=== PATIENT | female | born 1975 | race Caucasian/White ===

== ENCOUNTER 2020-06-24 08:00 | Outpatient (REF) | payer BC, SELFPAY ==
[2020-06-26 20:57] LABS: HPV mRNA E6/E7 rflx Not Detected (Not Detected)
== END 2020-06-24 08:01 | disposition home or self-care (01) ==
LOC: HO.LAB 08:00
PROVIDERS: PCP Family Medicine; Visit Provider Advanced Practice Midwife
DX: Z01.419 Encounter for gynecological examination (general) (routine) without abnormal findings (principal); E03.9 Hypothyroidism, unspecified; R23.2 Flushing; R61 Generalized hyperhidrosis; Z86.16 Personal history of COVID-19
CPT/HCPCS: 36415; 87624; 88142

== ENCOUNTER → 2021-06-30 08:00 | Outpatient (BNVA) | payer BC, SELFPAY | PROVIDERS: PCP Family Medicine; Visit Provider Advanced Practice Midwife | DX: Z13.89 Encounter for screening for other disorder (principal) ==

== ENCOUNTER 2021-07-12 08:28 | Outpatient (REF) | payer BC, SELFPAY ==
--- NOTE | ~2021-07-12 | MM_ITS ---
EXAMINATION: MM SCREENING DIGITAL BREAST TOMOSYNTHESIS, BILATERAL CLINICAL INFORMATION: Screening. Asymptomatic. The lifetime risk of breast cancer based on the Tyrer-Cuzick Model is 9%. COMPARISON: Mammography: 10/03/2019, 09/27/2018, 09/10/2017 TECHNIQUE: Digital breast tomosynthesis is performed in both the craniocaudal and mediolateral oblique views along with computer-aided detection (CAD). Synthesized 2D images are generated from the tomosynthesis. FINDINGS: There are scattered areas of fibroglandular density (ACR BI-RADS breast composition Category b). There is a fibronodular parenchymal pattern is similar to prior exams. Breast tissue composition borders on heterogeneously dense there is no significant mass or interval developing density or architectural abnormality. Numerous similar appearing punctate round calcifications are again seen in both breasts likely overall randomly mildly increased since 2018. Skin contours are smooth. No significant changes. MM/MM tomosynthesis screening BI IMPRESSION: No mammographic evidence of malignancy. ASSESSMENT: BI-RADS 2: Benign RECOMMENDATION: Routine annual mammography screening. This patient's information was entered into a reminder system with a target due date for their next mammogram.
== END 2021-07-12 08:29 | disposition home or self-care (01) ==
LOC: HO.MAMMO 08:28
PROVIDERS: PCP Family Medicine; Visit Provider Family Medicine
DX: Z12.31 Encounter for screening mammogram for malignant neoplasm of breast (principal)
CPT/HCPCS: 77063; 77067

== ENCOUNTER → 2022-01-09 15:16 | Outpatient (BNVA) | payer BC, SELFPAY | PROVIDERS: PCP Family Medicine; Visit Provider Advanced Practice Midwife | DX: T83.32XA Displacement of intrauterine contraceptive device, initial encounter (principal); Z30.433 Encounter for removal and reinsertion of intrauterine contraceptive device | CPT/HCPCS: 58301 ==

== ENCOUNTER 2022-01-26 12:45 | Outpatient (REF) | payer BC, SELFPAY ==
--- NOTE | ~2022-01-26 | US_ITS ---
EXAMINATION: US PELVIS CLINICAL INFORMATION: Check IUD placement. COMPARISON: None TECHNIQUE: Ultrasound of the pelvis is performed using both transabdominal and transvaginal transducers along with Doppler. Transvaginal imaging is performed due to inadequate visualization transabdominally. FINDINGS: UTERUS: The uterus is anteverted, anteflexed and measures 6.56 cm in length, 3.22 cm in AP and 4.0 cm in transverse dimension. There is an IUD within the endometrial canal limiting evaluation of endometrial thickness. The uterus is smooth in contour and has normal myometrial echogenicity. No visible fibroid. ADNEXA: Both ovaries are visualized. There is normal color flow to the adnexa. There is no ovarian torsion. There is no pelvic ascites or fluid collection. Right ovary measures 1.9 x 1.5 x 1.9 cm and volume 2.8 mL. There is an anechoic cyst measuring 1.0 x 0.70 x 1.0 cm. Left ovary measures 2.5 x 1.9 x 1.0 cm and volume 2.2 mL. There is an anechoic cyst measuring 0.50 x 0.50 x 0.35 cm. There is a corpus luteal cyst measuring 0.60 x 0.63 x 0.63 cm. There is no free fluid in the cul-de-sac. US/US pelvic and transvaginal IMPRESSION: IUD is in correct position within the endometrial canal. There is a corpus luteal cyst left ovary and a simple cyst in right ovary. There is no free fluid in the cul-de-sac.
== END 2022-01-26 12:46 | disposition home or self-care (01) ==
LOC: HO.HMGCX 12:45
PROVIDERS: Visit Provider Advanced Practice Midwife
DX: T83.32XA Displacement of intrauterine contraceptive device, initial encounter (principal)
CPT/HCPCS: 76830; 76856

== ENCOUNTER → 2022-04-30 14:57 | Outpatient (BNVA) | payer BC, SELFPAY | PROVIDERS: PCP Family Medicine; Visit Provider Obstetrics & Gynecology | DX: Z30.433 Encounter for removal and reinsertion of intrauterine contraceptive device (principal) | CPT/HCPCS: 58300; 58301; J7298 ==

== ENCOUNTER 2022-07-18 09:40 | Outpatient (REF) | payer BC, SELFPAY ==
--- NOTE | ~2022-07-18 | MM_ITS ---
EXAMINATION: MM SCREENING DIGITAL BREAST TOMOSYNTHESIS, BILATERAL CLINICAL INFORMATION: Screening. Asymptomatic. Benign left biopsy 2016 (fibroadenoma). The lifetime risk of breast cancer based on the Tyrer-Cuzick Model is 8%. COMPARISON: Mammography: 07/12/2021, 10/03/2019, 09/27/2018 TECHNIQUE: Digital breast tomosynthesis is performed in both the craniocaudal and mediolateral oblique views along with computer-aided detection (CAD). Synthesized 2D images are generated from the tomosynthesis. FINDINGS: There are scattered areas of fibroglandular density (ACR BI-RADS breast composition Category b). Breast tissue composition borders on heterogeneously dense. Parenchymal pattern is similar to prior exams and there is no developing density or interval significant mass or architectural abnormality. There is a biopsy clip marker overlying a biopsy proven fibroadenoma again seen posterior upper left breast. Again, there are scattered bilateral punctate calcifications. The axilla and skin contours are unremarkable. MM/MM tomosynthesis screening BI IMPRESSION: No significant changes from prior exams. ASSESSMENT: BI-RADS 2: Benign RECOMMENDATION: Routine annual mammography screening. This patient's information was entered into a reminder system with a target due date for their next mammogram.
== END 2022-07-18 09:41 | disposition home or self-care (01) ==
LOC: HO.MAMMO 09:40
PROVIDERS: PCP Family Medicine; Visit Provider Family Medicine
DX: Z12.31 Encounter for screening mammogram for malignant neoplasm of breast (principal)
CPT/HCPCS: 77063; 77067

== ENCOUNTER → 2022-07-23 08:02 | Outpatient (BNVA) | payer BC, SELFPAY | PROVIDERS: PCP Family Medicine; Visit Provider Obstetrics & Gynecology | DX: Z01.419 Encounter for gynecological examination (general) (routine) without abnormal findings (principal); T83.32XA Displacement of intrauterine contraceptive device, initial encounter; Z32.02 Encounter for pregnancy test, result negative | CPT/HCPCS: 81025 ==

== ENCOUNTER 2022-08-04 15:26 | Outpatient (REF) | payer BC, SELFPAY ==
--- NOTE | ~2022-08-04 | US_ITS ---
EXAMINATION: US PELVIS CLINICAL INFORMATION: Check IUD placement COMPARISON: Previous exam most recent January 2022 TECHNIQUE: Ultrasound of the pelvis is performed using both transabdominal and transvaginal transducers along with Doppler. Transvaginal imaging is performed due to inadequate visualization transabdominally. FINDINGS: The uterus is anteverted and measures 9.3 x 3.5 x 5.1 cm in dimension. There is an IUD in satisfactory position. The endometrium does not appear thickened. No focal uterine lesion. The ovaries are normal. The right ovary measures 2.7 x 1.8 x 2.2 cm. The left ovary measures 3.6 x 2.9 x 1.9 cm. There is no fluid in the pelvis. US/US pelvic and transvaginal IMPRESSION: IUD in the uterus in satisfactory position.
== END 2022-08-04 15:27 | disposition home or self-care (01) ==
LOC: HO.HMGCX 15:26
PROVIDERS: PCP Family Medicine; Visit Provider Obstetrics & Gynecology
DX: T83.32XA Displacement of intrauterine contraceptive device, initial encounter (principal)
CPT/HCPCS: 76830; 76856

== ENCOUNTER → 2022-08-27 08:10 | Outpatient (BNVA) | payer BC, SELFPAY | PROVIDERS: PCP Family Medicine; Visit Provider Obstetrics & Gynecology ==

== ENCOUNTER 2022-10-27 08:01 | Outpatient (REF) | payer BC, SELFPAY ==
[2022-10-28 16:20] LABS: H Pylori Breath Test Negative (Negative)
== END 2022-10-27 08:02 | disposition home or self-care (01) ==
LOC: HO.LNP 08:01
PROVIDERS: PCP Family Medicine; Visit Provider Nurse Practitioner
DX: Z01.818 Encounter for other preprocedural examination (principal); R11.0 Nausea; R13.10 Dysphagia, unspecified; R63.4 Abnormal weight loss; Z11.0 Encounter for screening for intestinal infectious diseases; Z80.0 Family history of malignant neoplasm of digestive organs
CPT/HCPCS: 83013

== ENCOUNTER 2022-10-27 08:01 | Outpatient (AMB) | payer BC, SELFPAY ==
--- NOTE | 2022-10-27 08:03 | A.OFFVIS_ITS ---
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 Accompanied by: Self / Same As Patient Allergies carrot [CARROT] Allergy (Severe, Verified 10/27/22 08:08) ANAPHYLAXIS ciprofloxacin [From Cipro] Allergy (Severe, Verified 10/27/22 08:08) Anaphylaxis amoxicillin [From Augmentin] Allergy (Intermediate, Verified 10/27/22 08:08) Rash clavulanic acid [From Augmentin] Allergy (Intermediate, Verified 10/27/22 08:08) Rash clindamycin Allergy (Intermediate, Verified 10/27/22 08:08) Hives doxycycline Allergy (Intermediate, Verified 10/27/22 08:08) Hives levofloxacin [From Levaquin] Allergy (Intermediate, Verified 10/27/22 08:08) Difficulty Breathing shellfish derived Allergy (Intermediate, Verified 10/27/22 08:08) upset stomach Environmental Allergy (Unknown, Uncoded 10/27/22 08:08) Unknown flagyl Allergy (Unknown, Uncoded 10/27/22 08:08) Unknown HPI New Pt colo screening HPI Details 47-year-old female here for preprocedural meeting to discuss a screening colonoscopy. She is referred by Matthias Ramos the . [facility] in [facility]. PMX Asthma Allergic rhinitis Hypothyroid Depression with anxiety Insomnia Polyarthralgia Fatigue Low back pain with sciatica Chronic sinusitis * SURGICAL HISTORY Total thyroidectomy Lumbar laminectomy L-5 Sinus roto rooter Arthroscopic knee surgery for menesuc tear Tonsillectomy and adeniodectomy C section x 2 * ALLERGIES Augmentin Flagyl Levaquin Nuts Clindamycin Doxycycline Shellfish * [employer]: No recent in our system TODAY'S VISIT This is her first colonoscopy. She suffers CIC and uses Miralax for this with good control. She has been suffering constant nausea and has lost 30 lbs r/t this, this is worse with eating over the last couple of months. She has dysphagia of solid foods mid sternally and a lot of GERD. She is taking TUMS and OTC omeprazole. She has had a lot of antibiotic treatments r/t her ongoing sinusitis and prednisone treatment. Her father had stomach cancer. No vaginal yeast infections, no mouth soreness etc. We discuss using pepcid for prn use. There are no prior problems with anesthesia or sedation. She is struggling with her asthma r/t the sinusitis over this year since she had COVID. She has a hx of bradycardia and tends towards low BP - testing came out okay. Apparently she has had trouble being allergic to thing since she developed COVID and this is a new health condition for her. No ID problems. Her father had colon polyps removed. I will order a colonoscopy and an EGD to help explore her nausea and I educate her that nausea is very vague symptom that can be caused by many body systems including GI but also it could be metabolic neurologic or even psychogenic. Since she is not on any acid reducing therapy we will get an H pylori breath test, basic CBC and metabolic panel, I urinalysis to see if she is spilling glucose to try to explain her abnormal weight loss as well as a barium swallow to thoroughly explore her dysphagia. She did well on Zofran but her insurance would only give her 12 pills a month. All try her on some metoclopramide 5 mg 4 times a day and consider if we need a gastric emptying study going forward depending on the results of other testing. Return office visit in 3 weeks to evaluate the Reglan and also course after the EGD colonoscopy. 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 Review of Systems Const Denies fatigue, Denies fever(s), Denies night sweats, Reports poor appetite and Reports weight loss (30 lbs) ENT Reports Normal hearing present, Denies dental pain, Reports dysphagia, Denies hearing loss, Denies mouth pain, Reports nasal congestion, Reports nasal discharge, Denies odynophagia, Reports sinus pressure, Denies throat swelling, Denies tongue swelling and Reports other (Dentition adequate) Card Reports no additional complaints Resp Reports cough and Reports wheezing GI Denies abdominal pain, Denies melena, Denies bloating, Denies hematochezia, Denies constipation, Denies GI cramping, Reports dysphagia, Denies excessive flatus, Denies early satiety, Reports heartburn, Denies diarrhea, Reports nausea, Denies odynophagia, Denies vomiting and Denies hematemesis Skin/Breast Denies pruritus, Denies lesions, Reports rash (Hive rash is not consistent with Cassidy) and Denies jaundice Neuro Reports Normal hearing present, Denies Abnormal speech present and Reports Sensory deficit (Neuro) (Loss of taste and smell) Endo Denies fatigue Aller/Immun Reports urticaria, Denies throat swelling, Denies tongue swelling and Reports wheezing Physical Exam Vital Signs: Last Vital Signs Pulse 93 10/27/22 08:09 BP 91/54 L 10/27/22 08:09 BMI result Body Mass Index 25.5 Const General: cooperative, no acute distress, well developed and well groomed Nutritional Appearance: average body habitus and well nourished Orientation/consciousness: oriented to person, oriented to place and oriented to time Limitations: No language barrier HEENT Head: Yes normocephalic and Yes atraumatic Eyes General: appearance normal, both eyes and all related structures Pupils: Equal, round and reactive pupils present Neck Neck: Yes normal visual inspection and Yes no lymphadenopathy Thyroid: Thyroid normal Resp Effort & Inspection: normal respiratory effort and able to speak in complete sentences Auscultation: clear to auscultation bilaterally Cardio Rate: regular rate Rhythm: regular rhythm Heart sounds: Normal, physiologic split S2 sound present Peripheral pulses: radial pulses present and posterior tibial pulses present GI Inspection: No distended and No Abdominal panniculus present Palpation (GI): Soft to palpation, nontender, no guarding, not rigid and No hepatosplenomegaly present Percussion: Yes normal to percussion Auscultation: normal bowel sounds Rectal Exam - Female: deferred Skin General skin exam: no rashes or lesions noted, turgor normal, skin not dry, no jaundice, No spider nevi and no striae Rashes: no rashes Nails: normal Neuro General: oriented to person, oriented to place and oriented to time Cranial nerves: Yes Equal, round and reactive pupils present and Yes Normal hearing present Speech: No Abnormal speech present Sensory Exam: Sensory deficit (Neuro) (Loss of taste and smell) Extrem General: Yes normal to inspection, No clubbing, No cyanosis and No edema Psych Appearance: grossly normal and well kempt Mental Status: mental status grossly normal Speech and movement: Normal speech and movement present Affect: normal affect Attitude: cooperative Thought process: Normal thought process present and not confabulating Thought content: Normal thought content present Insight: Fair insight present (Psych) Judgement: Fair judgement present (Psych) Assessment & Plan Assessment & Plan (1) Pre-op examination: Code(s): Z01.818 - Encounter for other preprocedural examination Plan: This is her first colonoscopy. She suffers CIC and uses Miralax for this with good control. She has been suffering constant nausea and has lost 30 lbs r/t this, this is worse with eating over the last couple of months. She has dysphagia of solid foods mid sternally and a lot of GERD. She is taking TUMS and OTC omeprazole. She has had a lot of antibiotic treatments r/t her ongoing sinusitis and prednisone treatment. Her father had stomach cancer. No vaginal yeast infections, no mouth soreness etc. We discuss using pepcid for prn use. There are no prior problems with anesthesia or sedation. She is struggling with her asthma r/t the sinusitis over this year since she had COVID. She has a hx of bradycardia and tends towards low BP - testing came out okay. Apparently she has had trouble being allergic to thing since she developed COVID and this is a new health condition for her. No ID problems. Her father had colon polyps removed. I will order a colonoscopy and an EGD to help explore her nausea and I educate her that nausea is very vague symptom that can be caused by many body systems including GI but also it could be metabolic neurologic or even psychogenic. Since she is not on any acid reducing therapy we will get an H pylori breath test, basic CBC and metabolic panel, I urinalysis to see if she is spilling glucose to try to explain her abnormal weight loss as well as a barium swallow to thoroughly explore her dysphagia. She did well on Zofran but her insurance would only give her 12 pills a month. All try her on some metoclopramide 5 mg 4 times a day and consider if we need a gastric emptying study going forward depending on the results of other testing. Return office visit in 3 weeks to evaluate the Reglan and also course after the EGD colonoscopy. (2) Family history of colon cancer: Code(s): Z80.0 - Family history of malignant neoplasm of digestive organs (3) Nausea: Code(s): R11.0 - Nausea (4) Dysphagia: Code(s): R13.10 - Dysphagia, unspecified (5) Abnormal weight loss: Code(s): R63.4 - Abnormal weight loss Orders: Orders Comprehensive Met. Panel Today Z01.818 - Encounter for other preprocedural examination, Z80.0 - Family history of malignant neoplasm of digestive organs Complete Blood Count Auto Diff Today Z01.818 - Encounter for other preprocedural examination, Z80.0 - Family history of malignant neoplasm of digestive organs [place] barium swallow Today R11.0 - Nausea, R13.10 - Dysphagia, unspecified EGD/[place] Combo - GI Use Only Today R11.0 - Nausea, R13.10 - Dysphagia, unspecified UA CC w/rflx Micro + Cult Today R63.4 - Abnormal weight loss H Pylori Breath Test Today Medications: New peg 3350-electrolytes 236-22.74-6.74 -5.86 gram (Golytely) until fecal effluent is clear; do not exceed a total volume of 2,000 mL 240 mL PO Q10M 1 day 4,000 mL 0RF Z12.11 - Encounter for screening for malignant neoplasm of colon metoclopramide HCl (Reglan) provider aware of possible interaction with sertraline and is monitoring 5 mg PO .tidac 90 tabs 3RF Coding Level of Care Code New Pt Level 3 (17048) Diagnoses Pre-op examination Z01.818 Family history of colon cancer Z80.0 Nausea R11.0 Dysphagia R13.10 Abnormal weight loss R63.4
[2022-10-27 08:09] VITALS: BP 91/54; PULSE 93; BMI 25.5
== END 2022-10-27 08:46 | disposition home or self-care (01) ==
PROVIDERS: PCP Family Medicine; Visit Provider Nurse Practitioner
DX: Z01.818 Encounter for other preprocedural examination (principal); Z12.11 Encounter for screening for malignant neoplasm of colon; Z80.0 Family history of malignant neoplasm of digestive organs; K59.04 Chronic idiopathic constipation; R13.10 Dysphagia, unspecified; R11.0 Nausea; R63.4 Abnormal weight loss
CPT/HCPCS: S0285

== ENCOUNTER 2022-10-30 06:29 | Outpatient (REF) | payer BC, SELFPAY ==
[2022-10-30 06:39] LABS: MANUAL DIFF FLAG NO
[2022-10-30 08:45] LABS: Appearance Urine Clear; Color Urine Yellow; Glucose Urine UA Negative (Negative); Leukocyte Esterase Urine Negative (Negative); Nitrite Urine Negative (Negative); PH 5.5 (5.0-9.0); Specific Gravity - Urine 1.025 (1.005-1.025); Urine Blood Negative (Negative); Urine Ketones Trace mg/dL (Negative); Urine Protein Trace mg/dL (Neg-Trace)
[2022-10-30 08:48] LABS: Basophils Absolute Auto 0.1 X10*3/uL (0.0-0.2); Basophils Percent Auto 1.5 % (0-2); Eosinophils Absolute Auto 0.9 X10*3/uL (0.0-0.4); Eosinophils Percent Auto 13.9 % (0-4); Hematocrit 38.4 % (37.0-47.0); Hemoglobin 12.4 g/dl (12.0-16.0); Imm Gran Abs Auto 0.02 X10*3/uL (0.00-0.03); Imm Gran Pct Auto 0.3 % (0.0-0.4); Lymphocytes Absolute Auto 2.2 X10*3/uL (1.2-4.9); Lymphocytes Percent Auto 34.1 % (20-40); Mean Corpuscular HGB Conc 32.3 g/dl (31.0-35.0); Mean Corpuscular Hemoglobin 31.2 pg (27.0-33.0); Mean Corpuscular Volume 96.5 fL (80.0-98.0); Mean Platelet Volume 11.5 fL (9.4-12.3); Monocytes Absolute Auto 0.5 X10*3/uL (0.1-1.2); Monocytes Percent Auto 7.6 % (2-11); Neutrophils Absolute Auto 2.8 x10*3/uL (2.0-8.3); Neutrophils Percent Auto 42.6 % (45-73); Platelet Count 247 X10*3/uL (160-400); Red Blood Count 3.98 X10*6/uL (4.20-5.50); Red Cell Distribution Width 12.7 % (11.0-16.0); White Blood Count 6.5 X10*3/uL (4.8-10.8)
[2022-10-30 09:34] LABS: Alanine Aminotransferase 11 U/L (0-31); Albumin Level 3.6 g/dL (3.5-5.0); Alkaline Phosphatase 68 U/L (39-117); Anion Gap 11 (12-20); Aspartate Amino Transferase 12 U/L (5-31); Bilirubin Total 0.4 mg/dL (0.0-1.0); Blood Urea Nitrogen 12 mg/dL (9-16); Calcium 9.3 mg/dL (8.4-10.2); Carbon Dioxide 24 mmol/L (22-29); Chloride 109 mmol/L (96-108); Estimated Glomerular Filt Rate > 60; Glucose Random 107 mg/dL (60-115); Potassium 3.3 mmol/L (3.3-5.1); Sodium 141 mmol/L (135-145); Total Protein 6.6 g/dL (6.5-8.0)
== END 2022-10-30 06:30 | disposition home or self-care (01) ==
LOC: HO.LAB 06:29
PROVIDERS: PCP Family Medicine; Visit Provider Nurse Practitioner
DX: Z01.818 Encounter for other preprocedural examination (principal); R63.4 Abnormal weight loss; Z80.0 Family history of malignant neoplasm of digestive organs
CPT/HCPCS: 36415; 80053; 81003; 85025

== ENCOUNTER → 2023-05-13 10:28 | Day surgery (SDC) | payer BC, SELFPAY ==
[2023-05-13 10:42] VITALS: BP 152/85; PULSE 120; RESP 26; TEMP 36.1; O2SAT 94
--- NOTE | 2023-05-13 10:43 | MHC.SHP ---
Pre-Procedural Eval Section A - 24 Hr Update-Section A only Date of Service: 05/13/23 Section B - Complete if H&P > 30 days Chief Complaint: hx malignant neoplasm,nausea,dysphagia, Relevant Family History (Specify if Yes): No Relevant Social History: None Present Medications: see Short Stay Collaborative assessment Medical History: Significant History History of Previous Operations: Relevant previous surgery/procedure and date(s) Allergies: Allergies Allergy/AdvReac Type Severity Reaction Status Date / Time carrot [CARROT] Allergy Severe ANAPHYLAXIS Verified 10/27/22 08:08 ciprofloxacin [From Cipro] Allergy Severe Anaphylaxis Verified 10/27/22 08:08 amoxicillin [From Augmentin] Allergy Intermediate Rash Verified 10/27/22 08:08 clavulanic acid Allergy Intermediate Rash Verified 10/27/22 08:08 [From Augmentin] clindamycin Allergy Intermediate Hives Verified 10/27/22 08:08 doxycycline Allergy Intermediate Hives Verified 10/27/22 08:08 levofloxacin [From Levaquin] Allergy Intermediate Difficulty Verified 10/27/22 08:08 Breathing shellfish derived Allergy Intermediate upset Verified 10/27/22 08:08 stomach Environmental Allergy Unknown Unknown Uncoded 10/27/22 08:08 flagyl Allergy Unknown Unknown Uncoded 10/27/22 08:08 Plan I have reviewed the history and physical and performed a pertinent physical examination on my patient. No changes have occurred unless specified. Time Spent With Patient Time: Total time managing care of this patient today ____ minutes.
[2023-05-13 10:56] LABS: UPreg QC Valid YES; Urine Pregnancy NEGATIVE (NEGATIVE)
--- NOTE | 2023-05-13 10:57 | PC.NURSE ---
Addendum entered by Margaux Whyte RN 05/13/23 11:19: CANCELLED SECOND TO ASTHMA NEWLY ON PREDNISONE Original Note: PT BEING RESCHEDULED BY SOWMYA AND DR BAILON [facility]
--- NOTE | 2023-05-13 10:59 | HO.ANESPROP2 ---
HPI - Anesthesia Eval Consult details Narrative: 47yo female patient for EGD/ Colonoscopy. Patient coughing uncontrollably. Face flushed. Voice raspy. Apparently just started on prednisolone yesterday for exacerbation of asthma. Sats 93% on room air. HR up to 120s. Used inhaler at home and also since she has been here. RR 26. Lung: Occasional wheeze. Denies recent cold/ fever but sniffly. Discussed with Dr Amato and patient. High risk for laryngeal/ bronchospasm. Will reschedule case to allow for optimization of status. Patient agrees with plan PMFSH Active Problems Active Problems: All Active Problems (Updated 10/27/22 @ 08:45 by VIKAS Mobley) Abnormal weight loss (Acute) Dysphagia (Acute) Nausea (Acute) Family history of colon cancer (Acute) Pre-op examination (Acute) Chronic sinusitis (Acute) Low back pain with sciatica (Acute) Fatigue (Acute) Polyarthralgia (Acute) Insomnia (Acute) Hypothyroid (Acute) IUD strings lost (Acute) Colon cancer screening (Acute) IUD check up (Acute) Well woman exam (Acute) Encounter for IUD removal and reinsertion (Acute) Contraceptive management (Acute) Past Medical History Medical History Asthma History of depression Family History Family History Father Stomach cancer Surgical History Surgical History History of lumbar laminectomy H/O total thyroidectomy H/O knee surgery Hx of tonsillectomy History of back surgery H/O thyroidectomy Hx of section Social History Social History Household Members: Spouse Housing: House Alcohol intake: current Alcohol intake frequency: a few times a week Patient Tobacco Use Status: Never used Tobacco Advance Directives: No Advance Directives Information Provided: Yes Recently lost weight without trying: No Nutrition Risks: No Nutritional Risk Current occupational status: employed 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 [employer] Meds Allergies Allergy/AdvReac Type Severity Reaction Status Date / Time carrot [CARROT] Allergy Severe ANAPHYLAXIS Verified 10/27/22 08:08 ciprofloxacin [From Cipro] Allergy Severe Anaphylaxis Verified 10/27/22 08:08 amoxicillin [From Augmentin] Allergy Intermediate Rash Verified 10/27/22 08:08 clavulanic acid Allergy Intermediate Rash Verified 10/27/22 08:08 [From Augmentin] clindamycin Allergy Intermediate Hives Verified 10/27/22 08:08 doxycycline Allergy Intermediate Hives Verified 10/27/22 08:08 levofloxacin [From Levaquin] Allergy Intermediate Difficulty Verified 10/27/22 08:08 Breathing shellfish derived Allergy Intermediate upset Verified 10/27/22 08:08 stomach Environmental Allergy Unknown Unknown Uncoded 10/27/22 08:08 flagyl Allergy Unknown Unknown Uncoded 10/27/22 08:08 Active Medications: Current Medications Lactated Ringer's (Lr) 1,000 mls @ 50 mls/hr IVCONT .Q20H [facility] Home Medications Medication Instructions Recorded Confirmed Last Taken Type levonorgestrel 21 mcg/24 hours (8 intrauterine 06/24/20 Unknown History yrs) 52 mg intrauterine device (Mirena) levothyroxine 112 mcg tablet mcg PO 06/24/20 Unknown History sertraline 50 mg tablet 50 mg PO DAILY 06/24/20 Unknown History cetirizine 10 mg tablet (Zyrtec) 10 mg PO DAILY PRN 07/23/22 Unknown History Exam Height,Weight and Vital Signs: Last Vital Signs Temp 97 F 05/13/23 10:42 Pulse 120 H 05/13/23 10:42 Resp 26 H 05/13/23 10:42 BP 152/85 H 05/13/23 10:42 Pulse Ox 94 05/13/23 10:42 O2 Del Method Room Air 05/13/23 10:42 Pertinent Lab Results Pertinent Lab Results: Laboratory Tests 05/13/23 10:35 Urine Test NEGATIVE
== END ==
PROVIDERS: Anesthesiology; PCP Family Medicine; Visit Provider Internal Medicine Gastroenterology
DX: R13.10 Dysphagia, unspecified (principal); Z53.8 Procedure and treatment not carried out for other reasons; J45.901 Unspecified asthma with (acute) exacerbation; Z79.52 Long term (current) use of systemic steroids; Z88.1 Allergy status to other antibiotic agents; Z80.0 Family history of malignant neoplasm of digestive organs
CPT/HCPCS: 81025

== ENCOUNTER 2023-07-24 09:48 | Outpatient (REF) | payer BC, SELFPAY | END 2023-07-24 09:49 | disposition home or self-care (01) | LOC: HO.MAMMO 09:48 | PROVIDERS: PCP Family Medicine; Visit Provider Family Medicine | DX: Z13.89 Encounter for screening for other disorder (principal) ==

== ENCOUNTER 2023-07-27 07:53 | Outpatient (AMB) | payer BC, SELFPAY ==
--- NOTE | 2023-07-27 07:58 | MHC.OFFVIS ---
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 Information Interpreted: non-clinical & clinical Certified Detention Deputy: Certified Detention Deputy Present ([place]) Accompanied by: Self / Same As Patient Allergies carrot [CARROT] Allergy (Severe, Verified 07/27/23 08:04) ANAPHYLAXIS ciprofloxacin [From Cipro] Allergy (Severe, Verified 07/27/23 08:04) Anaphylaxis amoxicillin [From Augmentin] Allergy (Intermediate, Verified 07/27/23 08:04) Rash clavulanic acid [From Augmentin] Allergy (Intermediate, Verified 07/27/23 08:04) Rash clindamycin Allergy (Intermediate, Verified 07/27/23 08:04) Hives doxycycline Allergy (Intermediate, Verified 07/27/23 08:04) Hives levofloxacin [From Levaquin] Allergy (Intermediate, Verified 07/27/23 08:04) Difficulty Breathing shellfish derived Allergy (Intermediate, Verified 07/27/23 08:04) upset stomach Environmental Allergy (Unknown, Uncoded 07/27/23 08:04) Unknown flagyl Allergy (Unknown, Uncoded 07/27/23 08:04) Unknown Is last menstrual period known: No (mirena) HPI HPI Comments History of Present Illness Details Presenting for annual exam. The patient had a cardiac MRI which showed left breast 2.5 cm lesion at 02:00 o'clock 7-8 cm from the nipple Last Pap/HPV was negative in 06/30 Last Mammogram was BI-RADS 2 in 08/02 No previous screening Colonoscopy, the patient is scheduled for her screening colonoscopy in September of 2023 [facility] Medical History Asthma History of depression Surgical History History of lumbar laminectomy H/O total thyroidectomy H/O knee surgery Hx of tonsillectomy History of back surgery H/O thyroidectomy Hx of section Family History Father Stomach cancer Social History Household Members: Spouse Housing: House Alcohol intake: current Alcohol intake frequency: a few times a week Patient Tobacco Use Status: Never used Tobacco Current occupational status: employed 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 Female Reproductive History Menstrual control method: progestin IUCD Date of last pap smear: 06/25/20 Date of Mammogram: 07/18/22 Review of Systems Const All systems reviewed & are unremarkable except as noted in HPI and below Card Reports as per HPI Resp Reports as per HPI GI Reports as per HPI and Reports no additional complaints Reports as per HPI Physical Exam Vital Signs: Last Vital Signs BP 124/70 07/27/23 08:02 BMI result Body Mass Index 28.0 Const General: cooperative, healthy appearing and comfortable Chest Chest palpation & inspection: normal inspection of the chest and normal palpation of entire chest wall Breast/axilla inspection: normal inspection of the breasts and normal inspection of the axillae Breast/axilla palpation: normal palpation of the breasts (Right breast within normal, left breast abnormal, see note), normal palpation of the axillae, no axillary lymphadenopathy and abnormal palpation of the breast (Left breast 02:00 o'clock lesion 2.5 cm 7-8 cm from the nipple on cardiac M) Resp Effort & Inspection: normal respiratory effort Auscultation: clear to auscultation bilaterally Percussion: percussion normal Cardio Palpation: normal PMI Rate: regular rate Rhythm: regular rhythm Heart sounds: no murmurs and no rubs Peripheral pulses: Peripheral pulses 2+ throughout GI Inspection: Yes normal to inspection Palpation (GI): Soft to palpation, nontender, no guarding, not rigid and No hepatosplenomegaly present Percussion: Yes normal to percussion Auscultation: normal bowel sounds Rectal Exam - Female: deferred General: Yes bladder normal to palpation External Female Exam: No lesion Speculum Exam - Vagina: normal appearance of the vagina, normal palpation, normal vaginal discharge and not erythematous Speculum Exam - Cervix: normal appearance of the cervix and normal palpation Bimanual exam- vagina & uterus: normal bimanual exam, normal palpation, uterine size normal, bladder normal to palpation, consistency normal and normal palpation Bimanual Exam- Adnexa, other: normal adnexae, no masses and no tenderness Assessment & Plan Assessment & Plan (1) Well woman exam: Code(s): Z01.419 - Encounter for gynecological examination (general) (routine) without abnormal findings Plan: Co testing not indicated this year. Counseled the patient about the recommended dietary allowance of 1200 mg of Calcium & 600 IU of vitamin D. Screening Mammogram ordered. The patient is scheduled with GI in September 2023 for screening colonoscopy . The patient was instructed to perform monthly self-breast exams and schedule annual exam in a year. All questions answered and the patient verbalized understanding. (2) Breast lump on left side at 2 o'clock position: Comment: Left breast 02:00 o'clock lesion 2.5 cm 7-8 cm from the nipple on cardiac MRI Code(s): N63.21 - Unspecified lump in the left breast, upper outer quadrant Plan: Will order bilateral screening mammogram. Discussed with the patient the finding on left Breast exam and MRI findings (left breast breast lump 2.5 cm in size, 7-8 cm from the nipple at 02:00 o'clock) .The differential diagnosis includes but not limited to lump/cyst/pre cancer/cancer or dense breast tissue. The work up includes breast US and diagnostic mammogram and referred the patient for surgical breast consult. Orders: Orders MM tomosynthesis screening BI Today N63.21 - Unspecified lump in the left breast, upper outer quadrant, Z12.31 - Encounter for screening mammogram for malignant neoplasm of breast MM tomosynthesis diagnostic LT Today N63.21 - Unspecified lump in the left breast, upper outer quadrant US breast LT complete Today N63.21 - Unspecified lump in the left breast, upper outer quadrant Referrals General Surgery Referral N63.21 - Unspecified lump in the left breast, upper outer quadrant Coding Level of Care Code Est Pt Prev Care 40-64y(69163) Diagnoses Well woman exam Z01.419 Breast lump on left side at 2 o'clock position N63.21
[2023-07-27 08:02] VITALS: BP 124/70; BMI 28.0
== END 2023-07-27 08:24 | disposition home or self-care (01) ==
PROVIDERS: Visit Provider Obstetrics & Gynecology
DX: Z01.419 Encounter for gynecological examination (general) (routine) without abnormal findings (principal); N63.21 Unspecified lump in the left breast, upper outer quadrant
CPT/HCPCS: 99396

== ENCOUNTER → 2023-07-27 07:53 | Outpatient (BNVA) | payer BC, SELFPAY | PROVIDERS: Visit Provider Obstetrics & Gynecology ==

== ENCOUNTER 2023-08-05 08:26 | Outpatient (REF) | payer BC, SELFPAY ==
--- NOTE | ~2023-08-05 | MM_ITS ---
EXAMINATION: MM DIAGNOSTIC DIGITAL BREAST TOMOSYNTHESIS, BILATERAL US BREAST LIMITED, LEFT MAMMOGRAPHY: CLINICAL INFORMATION: 48-year-old female, unspecified mass in the 2:00 axis of the left breast seen on cardiac MRI dated 06/11/2023. This did not enhance after contrast administration. Diagnostic to rule out mass lesion in the upper outer left breast. 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 COMPARISON: Mammography: 07/18/2022, 07/12/2021, 10/03/2019, 09/27/2018, and dating back to 2015. Cardiac MRI 06/11/2023. TECHNIQUE: Digital breast tomosynthesis is performed in both the craniocaudal and mediolateral oblique views along with computer-aided detection (CAD). Synthesized 2D images are generated from the tomosynthesis. In addition to standard views, exaggerated lateral CC full-field 3-D view was included, as well as a 3-D full-field left mediolateral view. This was followed by targeted left breast ultrasound of the upper outer quadrant. FINDINGS: The breasts are heterogeneously dense, which may obscure small masses (ACR BI-RADS breast composition Category c). In the high left axillary tail region, there is a small mass with an internal biopsy clip consistent with the known biopsied fibroadenoma. It is unchanged from prior exams. In addition, there is asymmetrically prominent parenchymal markings in the upper outer left breast approximate 2:00 position, similar to prior exams, and correlating well with the abnormality seen on cardiac MRI. This will be evaluated by ultrasound. There are otherwise no suspicious masses, suspicious grouped calcifications, or developing regions of architectural distortion in either breast. There are a few scattered punctate benign-appearing calcifications in both breasts. There is stable nodularity of the heterogeneously dense breast parenchymal pattern, which is unchanged from prior examinations. There are small oval circumscribed masses in both breasts, all subcentimeter, most consistent with small cysts and fibrocystic parenchyma. These findings are benign. There is no skin or axillary abnormality. ULTRASOUND: CLINICAL INFORMATION: Evaluate asymmetric focal density left breast upper outer quadrant as seen on cardiac MRI 06/11/2023. COMPARISON: Left breast biopsy and diagnostic ultrasound 02/17/2016, 02/06/2016. TECHNIQUE: Targeted sonographic evaluation was performed using a high frequency linear transducer. Left breast upper outer quadrant was scanned, to include the 2:00 abnormality and focal asymmetry in the upper outer quadrant. Selected archived documentation. FINDINGS: LEFT BREAST: There is heterogeneously dense breast tissue present in the left breast upper outer quadrant. There is an oval hypoechoic circumscribed mass with associated biopsy clip in the left breast at the 2:00 axis, 10 cm from the nipple, measuring 1.2 x 0.5 x 1.1 cm. This is in keeping with the known fibroadenoma. There is otherwise no suspicious mass, suspicious adenopathy, abnormal parenchymal shadowing, or architectural distortion in the upper outer quadrant of the left breast. MM/MM tomosynthesis diagnostic BI IMPRESSION: There are no findings suspicious for malignancy in the left breast. 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 This is benign. -Asymmetrically prominent fibroglandular tissue is present in the upper outer left breast, correlating with the mass seen on cardiac MRI, benign and unchanged from multiple prior exams. No further follow-up recommended. -Recommend this patient return to routine annual screening to include both breasts. OVERALL ASSESSMENT: Mammography: BI-RADS 2 - Benign Findings Ultrasound: BI-RADS 2 - Benign Findings RECOMMENDATION: 1 year F/U Results were provided to the patient at time of visit by the technologist. This patient's information was entered into a reminder system with a target due date for their next mammogram.
== END 2023-08-05 08:27 | disposition home or self-care (01) ==
LOC: HO.MAMMO 08:26
PROVIDERS: PCP Family Medicine; Visit Provider Obstetrics & Gynecology
DX: N63.21 Unspecified lump in the left breast, upper outer quadrant (principal)
CPT/HCPCS: 76642; 77062; 77066

== ENCOUNTER → 2023-08-05 09:00 | Outpatient (BNV) | payer BC, SELFPAY | PROVIDERS: PCP Family Medicine; Visit Provider Radiology Diagnostic Radiology | DX: D24.2 Benign neoplasm of left breast (principal); R92.1 Mammographic calcification found on diagnostic imaging of breast; N60.01 Solitary cyst of right breast; N60.02 Solitary cyst of left breast | CPT/HCPCS: 76642; 77062; 77066 ==

== ENCOUNTER 2024-08-01 07:23 | Outpatient (AMB) | payer BC, SELFPAY ==
[2024-08-01 07:24] VITALS: BP 98/60; BMI 25.9
--- NOTE | 2024-08-01 07:24 | A.OFFVIS_ITS ---
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 Information Interpreted: non-clinical & clinical Accompanied by: Self / Same As Patient Allergies carrot [CARROT] Allergy (Severe, Verified 08/01/24 07:26) ANAPHYLAXIS ciprofloxacin [From Cipro] Allergy (Severe, Verified 08/01/24 07:26) Anaphylaxis amoxicillin [From Augmentin] Allergy (Intermediate, Verified 08/01/24 07:26) Rash clavulanic acid [From Augmentin] Allergy (Intermediate, Verified 08/01/24 07:26) Rash clindamycin Allergy (Intermediate, Verified 08/01/24 07:26) Hives doxycycline Allergy (Intermediate, Verified 08/01/24 07:26) Hives levofloxacin [From Levaquin] Allergy (Intermediate, Verified 08/01/24 07:26) Difficulty Breathing shellfish derived Allergy (Intermediate, Verified 08/01/24 07:26) upset stomach Environmental Allergy (Unknown, Uncoded 08/01/24 07:26) Unknown flagyl Allergy (Unknown, Uncoded 08/01/24 07:26) Unknown Is last menstrual period known: No (mirena) HPI Comments Details: Presenting for annual exam. No complaints. Last Pap/HPV within 06/30, was negative Last Mammogram was BI-RADS 2 in 08/03 No previous screening Colonoscopy, the patient is scheduled for her next appointment with GI in few weeks [facility] Medical History Asthma History of depression Surgical History History of lumbar laminectomy H/O total thyroidectomy H/O knee surgery Hx of tonsillectomy History of back surgery H/O thyroidectomy Hx of section Family History Father Stomach cancer Social History Household Members: Spouse Housing: House Alcohol intake: current Alcohol intake frequency: a few times a week Patient Tobacco Use Status: Never used Tobacco Current occupational status: employed 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 Female Reproductive History Menstrual Date of last pap smear: 06/25/20 Date of Mammogram: 08/05/23 Review of Systems Const All systems reviewed & are unremarkable except as noted in HPI and below Card Reports as per HPI Resp Reports as per HPI GI Reports as per HPI and Reports no additional complaints Reports as per HPI Physical Exam Vital Signs: Last Vital Signs BP 98/60 08/01/24 07:24 BMI result Body Mass Index 25.9 Const General: cooperative, healthy appearing and comfortable Chest Chest palpation & inspection: normal inspection of the chest and normal palpation of entire chest wall Breast/axilla inspection: normal inspection of the breasts and normal inspection of the axillae Breast/axilla palpation: normal palpation of the breasts, normal palpation of the axillae and no axillary lymphadenopathy Resp Effort & Inspection: normal respiratory effort Auscultation: clear to auscultation bilaterally Percussion: percussion normal Cardio Palpation: normal PMI Rate: regular rate Rhythm: regular rhythm Heart sounds: no murmurs and no rubs Peripheral pulses: Peripheral pulses 2+ throughout GI Inspection: Yes normal to inspection Palpation (GI): Soft to palpation, nontender, no guarding, not rigid and No hepatosplenomegaly present Percussion: Yes normal to percussion Auscultation: normal bowel sounds Rectal Exam - Female: deferred General: Yes bladder normal to palpation External Female Exam: No lesion Speculum Exam - Vagina: normal appearance of the vagina, normal palpation, normal vaginal discharge and not erythematous Speculum Exam - Cervix: normal appearance of the cervix and normal palpation Bimanual exam- vagina & uterus: normal bimanual exam, normal palpation, uterine size normal, bladder normal to palpation, consistency normal and normal palpation Bimanual Exam- Adnexa, other: normal adnexae, no masses and no tenderness Assessment & Plan Assessment & Plan (1) Well woman exam: Code(s): Z01.419 - Encounter for gynecological examination (general) (routine) without abnormal findings Category: Medical Plan: Co testing at indicated this year. Counseled the patient about the recommended dietary allowance of 1200 mg of Calcium & 600 IU of vitamin D. Mammogram ordered. The patient is scheduled with GI for an appointment regarding screening colonoscopy . The patient was instructed to perform monthly self-breast exams and schedule annual exam in a year. All questions answered and the patient verbalized understanding. Orders: Orders MM tomosynthesis screening BI Today Z12.31 - Encounter for screening mammogram for malignant neoplasm of breast Coding Level of Care Code Est Pt Prev Care 40-64y(58770) Diagnoses Well woman exam Z01.419
--- OUTSIDE RECORDS SUMMARY | 2024-08-01 07:25 | XMS_ITS | Clinical Summary ---
Author Organization [facility] it Address [address] [place] [address] Care Team Providers Care Ict Educator Name Role Phone Unavailable Primary Care Provider Unavailabl e Social History Tobacco Use Types Packs/Day Years Used Date Smoking Tobacco: Never Assessed Comments Unknown Sex and Gender Information Value Date Recorded Sex Assigned at Not on file Legal Sex Female 2:11 PM EST Gender Identity Not on file Sexual Orientation Not on file Plan of Treatment Health Maintenance Due Date Last Done Comments Breast Cancer Screening 1974 DTaP,Tdap,and Td Vaccines (1 - Tdap) 1993 Hepatitis B Vaccines (1 of 3 - 19+ 3-dose series) 1993 Cervical Cancer Screening: P ap Smear 1995 Colorectal Cancer Screening: Colonoscopy 03/11/2022 Depression Screening 03/11/2022 HIV Screening 03/11/2022 Hepatitis C Screening 03/11/2022 Social Influencers of Health Screening 03/11/2022 COVID-19 Vaccine (1 - 2023-2 5 season) 2023 Pneumococcal Vaccine: 50+ Ye ars (1 of 1 - PCV) 2024 Zoster Vaccines (1 of 2) 2024 Influenza Vaccine (Season Ended) 2024 HIB Vaccines Aged Out No longer eligi ble based on patient's age to complete this topic HPV Vaccines Aged Out No longer eligi ble based on patient's age to complete this topic Hepatitis A Vaccines Aged Out No long er eligible based on patient's age to complete this topic IPV Vaccines Aged Out No longer eligi ble based on patient's age to complete this topic MMR Vaccines Aged Out No longer eligi ble based on patient's age to complete this topic Meningococcal ACWY Vaccine Aged Out N o longer eligible based on patient's age to complete this topic Meningococcal B Vaccine Aged Out No l onger eligible based on patient's age to complete this topic Pneumococcal Vaccine: Pediat rics (0 to 5 Years) and At-Risk Patients (6 to 64 Years) Aged Out No longer eligible b ased on patient's age to complete this topic RSV Immunization Patients Un inge 20 months Aged Out No longer eligible b ased on patient's age to complete this topic Varicella Vaccines Aged Out No longer eligible based on patient's age to complete this topic
--- OUTSIDE RECORDS SUMMARY | 2024-08-01 07:25 | XMS_ITS | Data Portability ---
Author Organization [place] - [facility], Allergy Address [address] [address] Assessment Encounter Date Assessment Date Assessment LastModified by Organization Details LastModified Time 09/08/2023 09/08/2023 Follow up in two to four weeks to discuss progress and address any concerns. The patient was also encouraged to utilize our drop-off servicing system in the unfortunate event that something happens to their device and/or to contact me through phone or email at their convenience. [email or web address] Not available 09/08/2023 09:01:33 Plan of Treatment Reminders Order Date Submit Date Provider Last Modified By Organization Details Last Modified Time Details Appointments None record ed. Lab None record ed. Referral None record ed. Procedures None record ed. Surgeries None record ed. Imaging None record ed. Medication Orders None record ed. Patient TargetsNo targets recorded. Patient InstructionsNo instructions recorded. Reason for Referral None Reported. Results Created Date Observation Date Name Description Value Unit Range Abnormal Flag Note LastModifiedBy Organization Detail LastModifiedTime 09/08/19 24 09/08/2023 audio gram No observ ation record ed. BARCODE Not Available 2023 13:44:19 12/02/19 24 05/29/2022 imagi ng/di agnos tic resul t No observ ation record ed. [email or web address] Not Available 19:15:20 12/02/19 24 05/29/2022 imagi ng/di agnos tic resul t No observ ation record ed. [email or web address] Not Available 19:15:22 12/02/19 24 06/07/2022 imagi ng/di agnos tic resul t No observ ation record ed. [email or web address] Not Available 19:15:24 12/02/19 24 06/07/2022 imagi ng/di agnos tic resul t No observ ation record ed. [email or web address] Not Available 19:15:26 12/02/19 24 08/11/2023 imagi ng/di agnos tic resul t No observ ation record ed. [email or web address] Not Available 19:15:32 12/02/19 24 10/16/2022 imagi ng/di agnos tic resul t No observ ation record ed. [email or web address] Not Available 19:15:56 12/02/19 24 11/16/2022 imagi ng/di agnos tic resul t No observ ation record ed. [email or web address] Not Available 19:15:58 12/02/19 24 11/16/2022 imagi ng/di agnos tic resul t No observ ation record ed. [email or web address] Not Available 19:16:01 12/02/19 24 02/16/2023 imagi ng/di agnos tic resul t No observ ation record ed. [email or web address] Not Available 19:16:11 12/02/19 24 02/25/2023 imagi ng/di agnos tic resul t No observ ation record ed. [email or web address] Not Available 19:16:16 12/02/19 24 05/29/2022 audio gram No observ ation record ed. [email or web address] Not Available 19:16:32 12/02/19 24 08/11/2023 audio gram No observ ation record ed. [email or web address] Not Available 19:16:37 12/02/19 24 11/16/2022 audio gram No observ ation record ed. [email or web address] Not Available 19:16:50 12/02/19 24 11/16/2022 audio gram No observ ation record ed. [email or web address] Not Available 19:16:55 Result Notes None recorded. Problems Name Problem SNOMED Code Status Onset Date Resolution Date Notes Provider Name and Address Organization Details Recorded Time Allergic rhinitis 79548396 Active 2022 Other allergic rhinitis; Note: Date Diagnosed : 12/25/2022 9:24 AM (J30.89) Not Available [facility] 4 02:53:59 Chronic pansinusi tis 16105490 Active 2022 Chronic pansinusi tis; Note: Date Diagnosed : 05/18/2022 1:20 PM (J32.4) Not Available [facility] 4 02:53:57 Sensorine ural hearing loss of bilateral ears 038774920 Active 2022 Sensorine ural hearing loss, bilateral ; Note: Date Diagnosed : 05/29/2022 10:58 AM (H90.3) Not Available [facility] 4 02:53:58 Uncomplic ated mild persisten t asthma 434943570 Active 2022 Mild persisten t asthma, uncomplic ated; Note: Date Diagnosed : 05/29/2022 11:56 AM (J45.30) Not Available [facility] 4 02:53:59 Acute serous otitis media of bilateral ears [id number] 66091 Active 2022 Acute serous otitis media, bilateral ; Note: Date Diagnosed : 12/25/2022 9:25 AM (H65.03) Not Available [facility] 4 02:53:57 Dysfuncti on of bilateral eustachia n tubes 33079715138 34489 Active 2023 EMELINA WELLER MD [address] [place] [address],[place] [address], [place], [address] , [facility] 4 11:07:16 Problem Notes None recorded. Procedures Surgical History Date Name Laterality Status Provider Name and Address Organization Details Recorded Time 10/10/19 23 Endoscopy maxillary sinus completed EMELINA WELLER MD [address] [place] [address],[place] [address], [place], [address], [facility] - [facility] [place] 08/27/2023 11:03:19 10/10/19 23 nasal endoscopy with total ethmoidectomy completed EMELINA WELLER MD [address] [place] [address] [place] [address], [phone], [place] - [facility] 08/27/2023 11:03:44 Remove tonsils and adenoids completed [facility] [place] [address] [place] [address], [address], [place] - [facility] 08/27/2023 11:02:30 thyroidectomy completed EMELINA WELLER MD [facility] [place],[address], [place], [address], [place] - [facility] 08/27/2023 11:02:42 Imaging Results Imaging Date Name Status LastModified by Organiz ation Details LastModified Time 09/08/2023 audiogram completed BARCODE Information no t available 09/08/2023 13:44:19 05/29/2022 imaging/diagno stic result completed Information not available 12/02/2023 19:15:20 05/29/2022 imaging/diagno stic result completed Information not available 12/02/2023 19:15:22 06/07/2022 imaging/diagno stic result completed Information not available 12/02/2023 19:15:24 06/07/2022 imaging/diagno stic result completed Information not available 12/02/2023 19:15:26 08/11/2023 imaging/diagno stic result completed Information not available 12/02/2023 19:15:32 10/16/2022 imaging/diagno stic result completed Information not available 12/02/2023 19:15:56 11/16/2022 imaging/diagno stic result completed Information not available 12/02/2023 19:15:58 11/16/2022 imaging/diagno stic result completed Information not available 12/02/2023 19:16:01 02/16/2023 imaging/diagno stic result completed Information not available 12/02/2023 19:16:11 02/25/2023 imaging/diagno stic result completed Information not available 12/02/2023 19:16:16 05/29/2022 audiogram completed Information not available 12/02/2023 19:16:32 08/11/2023 audiogram completed Information not available 12/02/2023 19:16:37 11/16/2022 audiogram completed Information not available 12/02/2023 19:16:50 11/16/2022 audiogram completed Information not available 12/02/2023 19:16:55 Procedure Notes None recorded. Medical Equipment None Reported. Allergies Allergen ID Allergen Name Allergen Category Reaction Reaction Severity Criticality Documentation Date Start Date Code Code System Note Provider Name and Address Organization Details Recorded Time 77322 doxycycli ne Not available other Not available Not available 08/24/2023 3640 RxNorm React ion: Unkno wn; Not Available [facility] 4 01:01:42 00058 Augmentin medicatio n other Not available Not available 08/24/2023 28694 2 RxNorm React ion: Unkno wn; Not Available [facility] 4 01:01:45 84459 Levaquin medicatio n other Not available Not available 08/24/2023 18823 2 RxNorm React ion: Unkno wn; Not Available [facility] 4 01:01:51 06458 Flagyl medicatio n other Not available Not available 08/24/2023 32201 6 RxNorm React ion: Unkno wn; Not Available [facility] 4 01:01:52 Medications Name Sig Start Date Stop Date Status Note LastModified by Organization Details LastModified Time Mirena 21 mcg/24 hr (up to 8 years) 52 mg intrauter ine device active Medicati on ID: [id number] B rand Name: Mirena S end Method: E-Prescr ibed Sub s Allowed: subs OK Medic ationGen ericName : Mirena Not Available Not Available Not Available prednison e 10 mg tablet PLEASE SEE ATTACHED FOR DETAILED DIRECTIO NS 08/26 completed Not Available Not Available Not Available albuterol sulfate 2.5 mg/3 mL (0.083 %) solution for nebulizat ion INHALE 1 VIAL VIA NEBULIZE R 3 TIMES A DAY active Not Available Not Available No t Available trazodone 50 mg tablet TAKE 1 TABLET BY MOUTH EVERY DAY AT BEDTIME 08/26 completed Not Available Not Available Not Available cetirizin e 10 mg tablet TAKE 1 TABLET BY MOUTH EVERY DAY active Not Available Not Available No t Available azithromy dawson 250 mg tablet TAKE 2 TABLETS BY MOUTH TODAY, THEN TAKE 1 TABLET DAILY FOR 4 DAYS DIRECTED 08/26 completed Not Available Not Available Not Available clarithro mycin 500 mg tablet 08/26 completed Medicati on ID: [id number] D uration Value: 7 Brand Name: irishithr omycin S end Method: E-Prescr ibed Sub s Allowed: subs OK Speci al Instruct ion: Take 1 tab by mouth twice a day for 7 days [facility] clarithr omycin M ned n ID: [id number] D uration Value: 7 Brand Name: irishithr omycin S end Method: E-Prescr ibed Sub s Allowed: subs OK Speci al Instruct ion: Take 1 tab by mouth twice a day for 7 days Med icationG enericNa me: irishithr omycin Not Available Not Available Not Available prednison e 20 mg tablet TAKE 2 TABLETS BY MOUTH DAILY 08/26 completed Not Available Not Available Not Available naproxen 250 mg tablet TAKE 1 TABLET BY MOUTH 2 TIMES A DAY FOR 7 DAYS. TAKE THIS OR MOTRIN, NOT BOTH. 08/26 completed Not Available Not Available Not Available clindamyc in HCl 150 mg capsule 08/26 completed Medicati on ID: [id number] B rand Name: clindamy dawson HCl Send Method: E-Prescr ibed Sub s Allowed: subs OK Medic ationGen ericName : clindamy dawson HCl Medi cation ID: [id number] B rand Name: clindamy dawson HCl Send Method: E-Prescr ibed Sub s Allowed: subs OK Medic ationGen ericName : clindamy dawson HCl Not Available Not Available Not Available spironola ctone 25 mg tablet TAKE 1 TABLET BY MOUTH EVERY DAY active Not Available Not Available No t Available guaifenes in 200 mg tablet TAKE 1 TABLET BY MOUTH EVERY 4 HOURS NEEDED FOR CONGESTI ON 08/26 completed Not Available Not Available Not Available bisoprolo l fumarate 5 mg tablet TAKE 1/2 OF A TABLET BY MOUTH DAILY FOR 30 DAYS 08/26 completed Not Available Not Available Not Available metoclopr amide 5 mg tablet TAKE 1 TABLET BY MOUTH 3 TIMES A DAY BEFORE MEALS 08/26 completed Not Available Not Available Not Available methocarb srinivas 750 mg tablet TAKE 1 TABLET BY MOUTH EVERY 6 HOURS NEEDED FOR MUSCLE PAIN 08/26 completed Not Available Not Available Not Available trazodone 100 mg tablet TAKE 1 TABLET BY MOUTH EVERYDAY AT BEDTIME 08/26 completed Not Available Not Available Not Available levothyro xine 125 mcg tablet TAKE 1 TABLET DAILY SIX DAYS PER WEEK. TAKE 1/2 TABLET DAILY ON THE SEVENTH DAY. 08/26 completed Not Available Not Available Not Available prednison e 50 mg tablet TAKE 1 TABLET BY MOUTH EVERY DAY 08/26 completed Not Available Not Available Not Available oxycodone 5 mg capsule TAKE 1 CAPSULE BY MOUTH EVERY 6 HOURS NEEDED FOR SEVERE PAIN PARTIAL FILL UPON REQUEST active Not Available Not Available No t Available omeprazol e 20 mg capsule,d elayed release TAKE 1 CAPSULE BY MOUTH EVERY DAY (30 TO 60 MINUTES BEFORE A MEAL) active Not Available Not Available No t Available budesonid e 0.5 mg/2 mL suspensio n for nebulizat ion USE 1 VIAL IN NEILMED RINSE ONCE DAILY (USE 1/2 BOTTLE PER NOSTRIL) active Not Available Not Available No t Available monteluka st 10 mg tablet TAKE 1 TABLET BY MOUTH EVERY EVENING active Not Available Not Available No t Available azelastin e 137 mcg (0.1 %) nasal spray USE 2 SPRAYS NASALLY TWICE A DAY DIRECTED active Not Available Not Available No t Available levofloxa dawson 750 mg tablet 08/26 completed Medicati on ID: [id number] B rand Name: levoflox acin Sen d Method: E-Prescr ibed Sub s Allowed: subs OK Medic ationGen ericName : levoflox acin Med ication ID: [id number] B rand Name: levoflox acin Sen d Method: E-Prescr ibed Sub s Allowed: subs OK Medic ationGen ericName : levoflox acin Not Available Not Available Not Available methylpre dnisolone 4 mg tablets in a dose pack TAKE DIRECTED active Not Available Not Available No t Available albuterol sulfate HFA 90 mcg/actua tion aerosol inhaler TAKE 2 PUFFS BY MOUTH EVERY 4 TO 6 HOURS NEEDED active Not Available Not Available No t Available ondansetr on 4 mg disintegr ating tablet TAKE 1 TABLET BY MOUTH EVERY 8 HOURS NEEDED FOR NAUSEA/V OMITING 08/26 completed Not Available Not Available Not Available sertralin e 50 mg tablet TAKE 1 TABLET BY MOUTH EVERY DAY active Not Available Not Available No t Available doxycycli ne hyclate 100 mg tablet TAKE 1 TABLET BY MOUTH TWICE A DAY active Not Available Not Available No t Available oxycodone 5 mg tablet TAKE 1 TABLET BY MOUTH EVERY 6 HOURS FOR 3 DAYS NEEDED FOR PAIN 08/26 completed Not Available Not Available Not Available Laxative (bisacody l) 5 mg tablet,de layed release TAKE 4 TABLETS BY MOUTH ONCE AT NOON THE DAY BEFORE COLONOSC OPY FOR 1 DAY active Not Available Not Available No t Available azithromy dawson 500 mg tablet TAKE 1 TABLET BY MOUTH EVERY DAY 08/26 completed Not Available Not Available Not Available GaviLyte- G 236 gram-22.7 4 gram-6.74 gram-5.86 gram oral solution TAKE 240 ML BY MOUTH EVERY 10 MINUTES UNTIL FECAL EFFLUENT IS CLEAR DIRECTED BY PREP INSTRUCT IONS active Not Available Not Available No t Available Farxiga 10 mg tablet active Not Available Not Available Not Available Entresto 24 mg-26 mg tablet TAKE 1 TABLET BY MOUTH TWICE A DAY active Not Available Not Available No t Available Trelegy Ellipta 100 mcg-62.5 mcg-25 mcg powder for inhalatio n INHALE 1 PUFF BY INHALATI ON ROUTE EVERY DAY AT THE SAME TIME EACH DAY 08/26 completed Not Available Not Available Not Available Lidocaine Pain Relief 4 % topical patch APPLY 1 PATCH TOPICALL Y DAILY active Not Available Not Available No t Available Xolair 75 mg/0.5 mL subcutane ous syringe active Not Available Not Available Not Available Xolair 150 mg/mL subcutane ous syringe active Not Available Not Available Not Available EC-Naprox en 500 mg tablet,de layed release TAKE 1 TABLET BY MOUTH TWICE A DAY 08/26 completed Not Available Not Available Not Available Wixela Inhub 250 mcg-50 mcg/dose powder for inhalatio n INHALE 1 DOSE BY MOUTH TWICE DAILY. RINSE MOUTH AFTER USE 08/26 completed Not Available Not Available Not Available Trelegy Ellipta 200 mcg-62.5 mcg-25 mcg powder for inhalatio n INHALE 1 PUFF BY INHALATI ON ROUTE EVERY DAY AT THE SAME TIME EACH DAY active Not Available Not Available No t Available Vitals Date Recorded Body height Body mass index (BMI) Body weight Provider Name and Address Organization Details Last Updated DateTime 08/27/2023 180.34 cm 28.5 kg/m2 75312.84 g Jaja Lewis [place] - [facility] 08/27/2023 09:31:50 Social History None recorded. Functional Status None recorded. Mental Status None recorded. Family History Nothing Reported. Medical History Condition Response Nasal or Sinus Problems Y Allergies/Hayfever Y Heart Problems Y Asthma Y Gynecological HistoryNo gynecological history recorded. Obstetrics History GPAL:G 0 P 0 0 0 0 Immunizations Vaccine Type Date Status Note Provider Nam e and Address Organization Details Recorded Time influenza, seasonal, intradermal, preservative free 3 completed Jaja sun [place] - [facility] 08/27/2023 09:33:02 Past Encounters Encounter ID Performer Location Encounter Start Date Encounter Closed Date Diagnosis/Indication Diagnosis SNOMED-CT Code Diagnosis ICD10 Code Diagnosis Note [id number] EMELINA WELLER MD [facility] [address] [place] [address] 08/27/2023 09:18:36 08/27/2023 12:54:53 Sensorineural hearing loss of bilateral ears 601222037 H90.3 Getting new TINEO in two weeks. Allergic rhinitis 857002 04 J30.89 She has a history of endoscopic sinus surgery and is newly on Xolair. She does have some mucus and congestion in her nasal cavity obscuring visualizat ion of the sinus cavities she has not been able to use the nasal rinses as she feels this blocks her ears. I did recommend using the budesonide vials but dripping them into her nasal cavity rather than using the rinses. This should hopefully help with her ear symptoms as well. Dysfunctio n of bilateral eustachian tubes [id number] 962548 H69.93 She had borderline type C tymps about 2 weeks ago and feels that her feeling of blockage and pressure is worsened, and there is evidence of a serous effusion on exam today on the right. I expect worsening symptoms are related to the allergies. She will see how she does when she receives her hearing aids in a couple weeks. Consider tube placement if the blockage is still bothersome at follow-up in 6 weeks. [id number] [facility] [place] [address] [facility],[place] [address] [place] [address] 09/08/2023 08:57:49 09/08/2023 10:21:45 Sensorineural hearing loss of bilateral ears 428081850 H90.3 [id number] POND [facility] 100 [facility] [address] 09/20/2023 11:35:55 09/26/2023 13:05:34 Sensorineural hearing loss of bilateral ears 241031865 H90.3 Health Concerns Section Related Observation LastModified by Organization Detai ls LastModified Time None Recorded Concern Status LastModified by Organization Details LastModified Time None Recorded Advance Directives Directive None Recorded Payers Encounter Date Sequence Insurance Name Policy Number Policy Mari Covered Member ID Mari Member ID Guarantor Name 09/20/2023 1 [employer]: [employer] Bertin Munoz [id number] Keesha Munoz Notes Date Note Type Note Provider Name and Address Organization Details Recorded Time 08/27/2023 text/html 48-year-old siva aguilar present today for follow-up. She has a history of allergies, asthma, chronic sinusitis. She had endoscopic sinus surgery last year. Since her last visit, she has started on Xolair and feels that this is helping with some of her symptoms. She has also been diagnosed with nonischemic cardiomyopathy and is now on heart medications which is also helping. She does feel underwater in her ears. She was previously seen for a effusion which did resolve on its own. She did have type A tymps 3 weeks ago when she had a hearing aid evaluation and she is scheduled to have a fitting appointment in 2 weeks. EMELINA WELLER MD [address], [address], [facility] - [facility] 08/27/2023 11:11:07 09/08/2023 text/html {{Patient return s for a fitting of amplification as a first time user. Today's visit will focus on educating the patient on how to use the devices. We will also be ensuring that the patient has adequate audibility and an improvement in clarity, while not raising the volume to an extent that the sound is uncomfortable.* Sherrie ent returns for a fitting of amplification as a previous user of amplification. Today's visit will focus on the differences between the patient's older model and their new one, as well as programming the hearing aid to ensure that it is providing the best outcome.}} The devices were programmed wirelessly using the instrumentation fitter software in [facility]. {{We reviewed using real-ear verification and fine-tuning to best match the patient's hearing needs in order to obtain the best outcome. Given that the patient is a new user, we will perform this measurement at our next visit.* Real-ear verification was performed and the devices were fine-tuned to maximize the patient's ability to hear speech.}} The patient's concerns about using the devices were discussed. Unfortunately, she reports a history of middle ear dysfunction and the right ear recently blocked up. A quick test of pure tone thresholds revealed about a 20 dB additional blockage in the right ear and type B tympanogram. Patient to follow up with Dr. Weller and we discussed how this may impact the fitting. Hearing aids have been programmed with the additional blockage for the right ear. We reviewed the device options and what accessories are included. Changing the wax filter was demonstrated. At the end of the visit, the patient was able to put them on and remove them without pain or discomfort. Marianne POND [address] [facility], [place], [address], [facility] 09/08/2023 11:07:48 09/20/2023 text/html Patient returns for a follow up fitting of amplification as a {{first time user.* longstanding user of the same style devices. longstandin g user of different devices.}} The focus of today's follow up fitting is to ensure that the patient knows how to use the devices to the best of their ability and that the devices are programmed to maximize audibility and amplification of speech. Patient reports that the blockage in her left ear has cleared. The devices were programmed wirelessly using the instrumentation fitter software in [facility]. Real-ear verification {{was performed and gain was adjusted until the output of the hearing aid amplified speech frequencies adequately was previously performed.*}} Today's audiogram used for reprogramming of the right ear. Patient reported that both ears Any remaining concerns about using the devices were discussed. Replacement of the wax filter was {{reviewed* demonstr ated}}. Follow up annually for cleaning and servicing of the devices, as well as monitoring patient's hearing. The patient was also encouraged to utilize our drop-off servicing system in the unfortunate event that something happens to their device and/or to contact me through phone or email at their convenience. ILDEFONSO LIZARRAGA, [facility] [address] [facility],[place] [address], [place], [address], [facility] - [facility] 09/20/2023 16:16:43 OBGyn Episode No OBEpisode recorded.
== END 2024-08-01 08:12 | disposition home or self-care (01) ==
LOC: HO.HWS 07:23
PROVIDERS: PCP Family Medicine; Visit Provider Obstetrics & Gynecology
DX: Z01.419 Encounter for gynecological examination (general) (routine) without abnormal findings (principal)
CPT/HCPCS: 99396; 99459

== ENCOUNTER 2024-09-16 08:10 | Outpatient (REF) | payer BC, SELFPAY | END 2024-09-16 08:11 | disposition home or self-care (01) | LOC: HO.MAMMO 08:10 | PROVIDERS: PCP Family Medicine; Visit Provider Obstetrics & Gynecology | DX: Z12.31 Encounter for screening mammogram for malignant neoplasm of breast (principal) | CPT/HCPCS: 77063; 77067 ==

== ENCOUNTER → 2024-09-16 08:15 | Outpatient (BNV) | payer BC, SELFPAY | PROVIDERS: PCP Family Medicine; Visit Provider Internal Medicine | DX: Z12.31 Encounter for screening mammogram for malignant neoplasm of breast (principal) | CPT/HCPCS: 77063; 77067 ==

== ENCOUNTER 2024-09-21 14:15 | Outpatient (AMB) | payer BC, SELFPAY ==
--- NOTE | 2024-09-21 14:23 | A.OFFVIS_ITS ---
Vital Signs 09/21/24 14:25 Height 5 ft 11 in Weight 169 lb 6 oz BMI 23.6 BP 98/56 L Blood Pressure Location Rt brachial Position Sitting Pulse 62 Pulse Source Pulse Oximeter Pulse Oximetry (%) 95 Oxygen Delivery Method Room Air Intake Visit Reasons: Follow up GERD Intake Note: Established patient for mgmt of GERD + rescreening for colo. Procedure cancelled 2022. CC: C.O. GERD persistence despite current tx and need for rescreening. Pt had previously had procedure scheduled twice. First procedure cancelled due to COVID 19 Infx. Second procedure cancelled due to complication of blood thinner. Facilities Officer Required: No Accompanied by: Self / Same As Patient Allergies carrot [CARROT] Allergy (Severe, Verified 09/21/24 14:24) ANAPHYLAXIS ciprofloxacin [From Cipro] Allergy (Severe, Verified 09/21/24 14:24) Anaphylaxis amoxicillin [From Augmentin] Allergy (Intermediate, Verified 09/21/24 14:24) Rash clavulanic acid [From Augmentin] Allergy (Intermediate, Verified 09/21/24 14:24) Rash clindamycin Allergy (Intermediate, Verified 09/21/24 14:24) Hives doxycycline Allergy (Intermediate, Verified 09/21/24 14:24) Hives levofloxacin [From Levaquin] Allergy (Intermediate, Verified 09/21/24 14:24) Difficulty Breathing shellfish derived Allergy (Intermediate, Verified 09/21/24 14:24) upset stomach Environmental Allergy (Unknown, Uncoded 09/21/24 14:24) Unknown flagyl Allergy (Unknown, Uncoded 09/21/24 14:24) Unknown HPI HPI Follow up GERD: Details: Assessment & Plan (1) Pre-op examination: ?Code(s): Z01.818 - Encounter for other preprocedural examination ?Plan: This is her first colonoscopy. She suffers CIC and uses Miralax for this with good control. She has been suffering constant nausea and has lost 30 lbs r/t this, this is worse with eating over the last couple of months. She has dysphagia of solid foods mid sternally and a lot of GERD. She is taking TUMS and OTC omeprazole. She has had a lot of antibiotic treatments r/t her ongoing sinusitis and prednisone treatment. Her father had stomach cancer. No vaginal yeast infections, no mouth soreness etc. We discuss using pepcid for prn use. There are no prior problems with anesthesia or sedation. She is struggling with her asthma r/t the sinusitis over this year since she had COVID. She has a hx of bradycardia and tends towards low BP - testing came out okay.? Apparently she has had trouble being allergic to thing since she developed COVID and this is a new health condition for her. No ID problems. Her father had colon polyps removed. I will order a colonoscopy and an EGD to help explore her nausea and I educate her that nausea is very vague symptom that can be caused by many body systems including GI but also it could be metabolic neurologic or even psychogenic.? Since she is not on any acid reducing therapy we will get an H pylori breath test, basic CBC and metabolic panel, I urinalysis to see if she is spilling glucose to try to explain her abnormal weight loss as well as a barium swallow to thoroughly explore her dysphagia. She did well on Zofran but her insurance would only give her 12 pills a month.? All try her on some metoclopramide 5 mg 4 times a day and consider if we need a gastric emptying study going forward depending on the results of other testing. Return office visit in 3 weeks to evaluate the Reglan and also course after the EGD colonoscopy. (2) Family history of colon cancer: ?Code(s): Z80.0 - Family history of malignant neoplasm of digestive organs (3) Nausea: ?Code(s): R11.0 - Nausea (4) Dysphagia: ?Code(s): R13.10 - Dysphagia, unspecified (5) Abnormal weight loss: ?Code(s): R63.4 - Abnormal weight loss ? ? ? Orders: LABS: 08/2024 [facility] unremarkable CBC, unremarkable renal and hepatic panels. COLONOSCOPY BIOPSY TODAY'S VISIT Patient has been lost to follow-up since 10/2022 THe procedure was cancelled twice, once for her being COVID positive, second because she had a new dx of cardiomyopathy. She suffers HB and GERD and still has dysphagia with food sticking in the oropharyngeal area. She is on omeprazole. She does struggle with CIC but this is currently well controlled on her stool softeners. Her cardiac condition is well controlled as is her Asthma. 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 [facility] [place] get cardiac clearance. EF 60%. There are no prior problems with anesthesia or sedation. No ID problems. Her mother and father both had colon polyps and her father had stomach cancer. Will get barium swallow and add EGD for the dysphagia of solid foods. [facility] Medical History (Updated 09/21/24 @ 15:11 by VIKAS Mobley) Dysphagia Nausea Abnormal weight loss Contraceptive management Encounter for IUD removal and reinsertion Well woman exam IUD check up Colon cancer screening Asthma History of depression Surgical History History of lumbar laminectomy H/O total thyroidectomy H/O knee surgery Hx of tonsillectomy History of back surgery H/O thyroidectomy Hx of section Family History Father Stomach cancer Social History Household Members: Spouse Housing: House Alcohol intake: current Alcohol intake frequency: a few times a week Patient Tobacco Use Status: Never used Tobacco Current occupational status: employed 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 Review of Systems Const Denies fatigue, Denies fever(s), Denies night sweats, Denies poor appetite and Denies weight loss ENT Reports Normal hearing present, Denies dental pain, Reports dysphagia, Denies hearing loss, Denies mouth pain, Denies odynophagia, Denies throat swelling, Denies tongue swelling and Reports other (Dentition adequate) Card Reports no additional complaints Resp Reports no additional complaints GI Details: Denies abdominal pain, Denies melena, Denies bloating, Denies hematochezia, Reports constipation, Denies GI cramping, Reports dysphagia, Denies excessive flatus, Denies early satiety, Reports heartburn, Denies diarrhea, Denies nausea, Denies odynophagia, Denies vomiting and Denies hematemesis Skin/Breast Denies pruritus, Denies lesions, Denies rash and Denies jaundice Neuro Reports Normal hearing present and Denies Abnormal speech present Endo Denies fatigue Aller/Immun Denies throat swelling and Denies tongue swelling Physical Exam Const General: cooperative, no acute distress, well developed and well groomed Nutritional Appearance: well nourished, obese and overweight Orientation/consciousness: oriented to person, oriented to place and oriented to time Limitations: No language barrier, ambulation with cane, ambulation with walker and wheelchair HEENT Head: Yes normocephalic and Yes atraumatic Eyes General: appearance normal, both eyes and all related structures Pupils: Equal, round and reactive pupils present Neck Neck: Yes normal visual inspection and Yes no lymphadenopathy Thyroid: Thyroid normal Resp Effort & Inspection: normal respiratory effort and able to speak in complete sentences Auscultation: clear to auscultation bilaterally Cardio Rate: regular rate Rhythm: regular rhythm Heart sounds: Normal, physiologic split S2 sound present Peripheral pulses: radial pulses present and posterior tibial pulses present GI Inspection: No distended and No Abdominal panniculus present Palpation (GI): Soft to palpation, nontender, no guarding, not rigid, No hepatosplenomegaly present and Hepatosplenomegaly present Percussion: Yes normal to percussion Auscultation: normal bowel sounds Rectal Exam - Female: deferred Skin General skin exam: no rashes or lesions noted, turgor normal, skin not dry, no jaundice, No spider nevi and no striae Rashes: no rashes Nails: normal Neuro General: oriented to person, oriented to place and oriented to time Cranial nerves: Yes Equal, round and reactive pupils present and Yes Normal hearing present Speech: No Abnormal speech present Extrem General: Yes normal to inspection, No clubbing, No cyanosis and No edema Psych Thought process: Normal thought process present and not confabulating Thought content: Normal thought content present Insight: Good insight present (Psych) Judgement: Good judgement present (Psych) Assessment & Plan Assessment & Plan (1) Pre-op examination: Code(s): Z01.818 - Encounter for other preprocedural examination Category: Medical (2) Family history of colon cancer: Code(s): Z80.0 - Family history of malignant neoplasm of digestive organs Category: Medical (3) Dysphagia: Code(s): R13.10 - Dysphagia, unspecified Category: Medical (4) Asthma: Code(s): J45.909 - Unspecified asthma, uncomplicated Category: Medical (5) Nonischemic cardiomyopathy: Code(s): I42.8 - Other cardiomyopathies Category: Medical (6) Heart failure with reduced ejection fraction due to cardiomyopathy: Comment: Last EF via Cardiology notes 60% so this must be mild Code(s): I50.20 - Unspecified systolic (congestive) heart failure; I42.9 - Cardiomyopathy, unspecified Category: Medical Plan Patient has been lost to follow-up since 10/2022 THe procedure was cancelled twice, once for her being COVID positive, second because she had a new dx of cardiomyopathy. She suffers HB and GERD and still has dysphagia with food sticking in the oropharyngeal area. She is on omeprazole. She does struggle with CIC but this is currently well controlled on her stool softeners. Her cardiac condition is well controlled as is her Asthma. 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 Zonia Parra [place] [facility] [place] we should get cardiac clearance. EF 60%. There are no prior problems with anesthesia or sedation. No ID problems. Her mother and father both had colon polyps and her father had stomach cancer. Will get barium swallow and add EGD for the dysphagia of solid foods. Orders: Orders Complete Blood Count Auto Diff Today Z01.818 - Encounter for other preprocedural examination, Z80.0 - Family history of malignant neoplasm of digestive organs Comprehensive Met. Panel Today Z01.818 - Encounter for other preprocedural examination, Z80.0 - Family history of malignant neoplasm of digestive organs [place] barium swallow Today R13.10 - Dysphagia, unspecified EGD/Polo Combo - GI Use Only Today R13.10 - Dysphagia, unspecified Medications: New peg 3350-electrolytes 236-22.74-6.74 -5.86 gram (Golytely) until fecal effluent is clear; do not exceed a total volume of 2,000 mL 240 mL PO Q10M 1 day 4,000 mL 0RF Z12.11 - Encounter for screening for malignant neoplasm of colon bisacodyl (Dulcolax (bisacodyl)) 10 mg (2 x 5 mg) PO BEDTIME 2 days 4 tabs 0RF Coding Level of Care Code Est Pt Level 4 (58637) Diagnoses Pre-op examination Z01.818 Family history of colon cancer Z80.0 Dysphagia R13.10 Asthma J45.909 Nonischemic cardiomyopathy I42.8 Heart failure with reduced ejection fraction due to cardiomyopathy I50.20; I42.9 Time Spent (min) 40
[2024-09-21 14:25] VITALS: BP 98/56; PULSE 62; O2SAT 95; BMI 23.6
== END 2024-09-21 15:02 | disposition home or self-care (01) ==
LOC: HO.HGI 14:16
PROVIDERS: PCP Family Medicine; Visit Provider Nurse Practitioner
DX: Z01.818 Encounter for other preprocedural examination (principal); Z12.11 Encounter for screening for malignant neoplasm of colon; Z80.0 Family history of malignant neoplasm of digestive organs; R13.10 Dysphagia, unspecified
CPT/HCPCS: S0285